=== PATIENT | female | born 2005 | race Caucasian/White ===

== ENCOUNTER 2025-02-23 16:51 | Emergency (ER) | payer BC, SELFPAY ==
[2025-02-23 17:01] VITALS: BP 117/73
[2025-02-23 17:16] LABS: Hematocrit 39.2 % (37.0-47.0); Hemoglobin 13.2 g/dL (12.0-16.0); Mean Corp Hgb Conc. 33.7 g/dL (33.0-37.0); Mean Corpuscular Volume 95.8 fL (81.0-99.0); Nucleated Red Blood Cells % 0 %; Platelet Count 282 10^3/uL (130-400); Red Cell Dist. Width 12.3 % (11.5-14.5)
[2025-02-23 17:28] LABS: HCG, Serum Qualitative Screen Negative
[2025-02-23 17:33] LABS: ALT (SGPT) 14 U/L (0-35); AST (SGOT) 22 U/L (14-36); Albumin 4.8 g/dl (3.5-5.0); Alkaline Phosphatase 39 U/L (38-126); Blood Urea Nitrogen 13 mg/dl (7-17); Calcium 9.7 mg/dl (8.4-10.2); Carbon Dioxide 27 mmol/L (22-30); Chloride 106 mmol/L (98-107); Glucose 68 mg/dl (70-99); Lipase 142 U/L (23-300); Potassium 4.0 mmol/L (3.5-5.1); Sodium 136 mmol/L (135-145); Total Protein 7.7 g/dl (6.3-8.2); eGFR > 60.00
[2025-02-23 18:52] VITALS: BMI 26.5
[2025-02-23 18:53] VITALS: BP 112/82
[2025-02-23] MEDS: OMNIPAQUE 50 ML PO (19:25)
--- NOTE | 2025-02-23 19:52 | ED.GENMED ---
History of Present Illness
General
Chief Complaint: Abdominal Symptoms
Source: patient
Time Seen by Provider: 02/23/25 19:11
History of Present Illness
History of Present Illness:
20-year-old female with past medical history of previous Hirschsprung's disease presents to the emergency department for evaluation of 3 weeks GI upset noting generalized cramping/discomfort, nausea, vomiting and watery stool. Patient states that
symptoms seem to be worsening, went to urgent care yesterday where she states they already ate saltines and sent her home without any further tests. She has not attempted any medication. She notes that her spinal disease she normally will only
have 1 bowel movement. She denies any rectal pain associated with this. No melena or hematochezia, fevers, chills, rigors. Denies any recent antibiotics. Denies any recent travel or known sick contacts. Social history was otherwise
noncontributory. Patient has no concern for .
Past History
Past History
ED Past Medical History: Psychiatric and Other (Hirschsprung's disease)
ED Past Surgical History: Other
Social History
Tobacco: Non-smoker
Alcohol: Occasional
Drug: None
Personal: Single
Living: with family
Employment: Student
Review of Systems
Review of Systems
All Other Systems: ROS reviewed and negative except as documented in HPI and ROS
Phy Exam
Physical Exam
Physical Exam:
GENERAL: Alert , in no apparent distress
EYE: clear conjunctiva b/l
HEAD: NCAT
ENT: o/p clr, mmm.
CARDIAC: Regular rate and rhythm .
LUNGS: Clear breath sounds bilaterally, no acute respiratory distress, no wheezes/rales/rhonchi
ABDOMEN: Soft, generally tender, no r/g, no cvat
NEUROLOGICAL: Alert and oriented
SKIN: Warm and dry, skin intact.
MUSCULOSKELETAL: No edema, well perfused.
PSYCH: Normal and appropriate interaction.
Scores
Heart Failure Risk
Heart Failure Risk Score: Not Applicable
Heart Score for Chest Pain Patients
STEMI patient?: Not applicable
Withdrawal Assessment of Alcohol
Withdrawal Assessment Completed?: Not applicable
Course
Orders/Labs/Results
Orders:
Orders
02/23/25 17:05
Test Result ONCE
02/23/25 17:09
Complete Blood Count/With Diff Urgent
Comprehensive Metabolic Panel Urgent
HCG, Serum Qualitative Screen Urgent
Lipase Urgent
02/23/25 19:12
CT Abd/pel W Iv And Oral Contr Urgent
Comment:
Reason For Exam: abdominal pain, N/V/D
Iohexol [Omnipaque] See Protocol PO NOW STA
02/23/25 20:31
STOOL [C difficile Antigen & Toxins] Urgent
VICENTE Source: Feces/Stool
Specimen Description:
Date Specimen was Collected: 02/23/25
Time Specimen was Collected: 20:13
Stool Culture Urgent
VICENTE Source: Feces/Stool
Specimen Description:
Date Specimen was Collected: 02/23/25
Time Specimen was Collected: 20:13
Abnormal Lab Results
02/23/25
17:09
RBC 4.09 L 10^6/uL
(4.20-5.40)
MCH 32.3 H pg
(27.0-31.0)
MPV 10.8 H fL
(7.4-10.4)
Absolute Monos (auto) 0.7 H 10^3/uL
(0.1-0.6)
Glucose 68 L mg/dl
(70-99)
02/23/25 17:09
02/23/25 17:09
Vital Signs
Initial and Last Documented VS:
Initial Vital Signs
Temp Pulse Resp BP Pulse Ox
98.0 F 92 18 117/73 100
02/23/25 17:01 02/23/25 17:01 02/23/25 17:01 02/23/25 17:01 02/23/25 17:01
Last Documented Vital Signs
Temp Pulse Resp BP Pulse Ox
99.1 F 82 16 105/77 100
02/23/25 18:53 02/23/25 21:14 02/23/25 21:14 02/23/25 21:14 02/23/25 21:14
MDM/Problems Addressed
Differential Diagnosis Includes:
Gastroenteritis
C. Diff
Colitis
Infectious Diarrhea
Dehydration
Electrolyte Imbalance
UC/Crohns
MDM/Problems Addressed:
20-year-old female presenting to the ER for evaluation of GI upset with nausea vomiting and diarrhea over the last 3 weeks, symptoms not any different today but due to the persistent nature of the symptoms decided to come to the ER for further
evaluation. Patient smiling and overall very well-appearing. My suspicion for any significant emergent pathology/surgical pathology is still quite low but given the persistent nature of symptoms will obtain CT scan to further evaluate. Will
attempt for stool studies. Disposition pending.
*Radiology
Radiology exam reviewed: radiology read reviewed
*Pulse Oximetry
SaO2: 100
Oxygen Mode of Delivery: Room air
Patient hypoxic: no
*Critical Care Note
Total Time (30-74mins, 75-104mins- exclusive of procedures): Not Applicable
Patient Management
Escalation/DeEscalation of care consider admission/obs:
CT scan is consistent with diffuse colonic wall thickening compatible with colitis. There is no obstruction, no surgical pathology seen. At this time I do think it is reasonable for continued supportive measures. Zofran ordered for symptoms.
Would like to avoid Imodium or other medications that could potentially constipate patient given her history of the Hirschsprung's and already having a hard time dealing with constipation. Information for GI was provided. Patient otherwise stable
for discharge home and aware of return precautions.
ED Attending Note
-
Portions of this chart may have been created with voice recognition software.� Occasional wrong word or��sound alike� substitutions may have occurred due to the inherent limitations of voice recognition software.
Discharge Plan
Departure
Patient Disposition: Home (Routine Discharge)
Date of Disposition: 02/23/25
Time of Disposition: 22:00
Patient with high blood pressure during this ER visit?: No
Discharge Problem:
Colitis
Instructions: Colitis (DC)
Prescriptions:
New
ondansetron 4 mg tablet,disintegrating
4 mg PO TIDPRN PRN (Reason: nausea/vomiting) Qty: 10 0RF
Referrals:
Jerome Jo MD [Active, Gastroenterology]
Celi Bhatti MD [Family Provider]
Interventions
Interventions:
*Risk Screen - Suicide Last Done: 02/23/25 17:01
*General Assessment Last Done: 02/23/25 17:01
*Neglect/Abuse Screening Last Done: 02/23/25 17:01
*ED- Fall Risk Assessment Last Done: 02/23/25 18:52
*ED COVID-19 Vaccine History Last Done: 02/23/25 18:52
*ED Influenza Vaccine History Last Done: 02/23/25 18:52
PE-Gzvlrk-Hzqnxlypbo Assessment Last Done: 02/23/25 18:55
Discharge Date and Time
Print Language: DANISH
[2025-02-23 21:14] VITALS: BP 105/77
== END 2025-02-23 22:22 | disposition home or self-care (01) ==
LOC: EMR 16:51
PROVIDERS: EMERGENCY PHYSICIAN Student in an Organized Health Care Education/Training Program; FAMILY PHYSICIAN Family Medicine
DX: K52.9 Noninfective gastroenteritis and colitis, unspecified (principal); Q43.1 Hirschsprung's disease
CPT/HCPCS: 99284; 74177; 80053; 83690; 84703; 85025; 87045; 87046; 87324; 87427; 87449; Q9967